=== PATIENT | male | born 1950 | race Caucasian/White ===

== ENCOUNTER 2016-08-08 09:15 | Day surgery (SDC) | payer MEDICARE ==
[~2016-08-08] VITALS: Ht 172.7 cm; Wt 84.0 kg
[~2016-08-08 09:15] MED LIST: LISI10TA PO; LOSA25TA21 PO; Lactated Ringer's 1,000 ML IV ONE; SIMV20TA4 PO
[2016-08-08] MEDS ORDERED: Propofol 10,000 mCg/mL 20 mL Inj ONE (09:16)
[2016-08-08] MEDS ORDERED: ASPI-973 PO (09:42)
[2016-08-08 09:51] VITALS: BP 133/90; PULSE 61; RESP 17; O2SAT 96
[2016-08-08] MEDS ORDERED: Lactated Ringer's 1,000 ML IV SCH (10:16)
--- NOTE | 2016-08-08 10:16 | PCM.HPANE ---
Patient Data Surgeon Admitting Provider: Attending Provider:Moses Long MD Primary Care Physician:Rodrigo Camejo MD Other Provider:[facility] Reason for Visit Dysphagia Ht/WT & BMI Height (Feet): 5 Height (Inches): 8 Weight (Kilograms): 84 Body Mass Index 28.00 Allergies Coded Allergies: No Known Allergies (Verified , 11/02/14) Past Anesthesia History Anesthesia History: Denies:: Abnormal Airway, Anesthesia Reactions, Difficult Intubation, Fam Anesthesia Reaction, Fam Malignant Hypertherm, Malignant Hyperthermia Diabetes History Hx Diabetes?: No MRSA MRSA: No Medications Blood Thinner: Aspirin Last Dose Blood Thinner: Aug 06, 2016 Reported Medications Aspirin 81 Mg [id number] Mg PO DAILY Ref 0 08/08/16 Simvastatin 20 Mg [id number] Mg PO HS Ref 0 08/07/16 Losartan Potassium 25 Mg [id number] Mg PO DAILY 08/07/16 Discontinued Reported Medications Lisinopril 10 Mg [id number] Mg PO DAILY 30 Days Ref 0 08/07/16 [statin] No Conflict [id number] 04/17/12 History History of ENT Problems?: No HEENT History: Positive for:: Dysphagia (dry foods) Hearing Problem Denies:: Abnormal Airway Difficult Intubation Hx of Heart Problems?: Yes Cardiovascular History: Positive for:: Hypertension Denies:: AICD Atrial Fibrillation Chest Pain Pacemaker Valvular Heart Disease Hx of Respiratory Problem?: No Respiratory History: Denies:: Asthma COPD Cough Hemoptysis Pneumonia Tuberculosis Hx Neurologic Problems?: Yes Neurological History: Positive for:: Dizziness (Occasional vertigo) Denies:: CVA Hx of GI Problems?: Yes Gastrointestinal History: Denies:: Cirrhosis Diverticulitis Gall Bladder Disease Gastroesphageal Reflux Hiatal Hernia Liver Disease Rectal Bleeding Hx of Problems?: No Male Hx: Denies:: Scrotal Mass Musculoskeletal History: Positive for:: Joint Replacement (LEFT KNEE) Hx of Psycho/Social Problems?: No Psycho Social History: Denies:: Anxiety Bipolar Disorder Hx Depression Suicide Attempt Hx Surgeries?: Yes (see paper chart) Hx Any Other Health Problems?: No Other History: Positive for:: Cancer (Basal cell carcinoma on multiple moles) Hospitalization Denies:: Endocrine Disease Thyroid Disease History Blood Transfusions: Denies:: Blood Transfuse Reaction Blood Transfusions Hx Diabetes: No Hx Alcohol Use: Yes (3 BEERS daily)Hx Substance Use: No Smoking Status: Former Smoker Stop/Bang Treated for Sleep Apnea?: No Do You Have a CPAP Machine?: No S-Snoring: Do You Snore Loudly: Yes T-Tired: feel tired, fatigued: No O-Obsered: Observed not breath: No P-Blood Pressure: treated: Yes B- Body Mass Index > 35 kg/m2: No A- Age over 50: Yes N- Neck Large Circumference: No G- Gender Male: Yes JOANNE Total Score: 4 JOANNE Risk Assessment: Low Risk, <3 Yes Risk Assessment Category Category 1A: Patient has history of documented sleep apnea, and HAS NOT received any narcotic, sedative or anesthesia administration during this stay. Category 1B: Patient has history of documented sleep apnea, and HAS received any narcotic , sedative or anesthesia administration during this stay Category 2: Patient has SUSPECTED Obstructive Sleep Apnea, and HAS received any narcotic , sedative or anesthesia administration during this stay. Category 3: Patient has SUSPECTED Obstructive Sleep Apnea and HAS NOT received narcotic, sedative or anesthesia administration during this stay. Category 4: Outpatient in Procedural Areas with known sleep apnea or who screen positive for High Risk via the STOP/BANG questionnaire. Exam Exam Vital Signs Vital Signs Date Time Temp Pulse Resp B/P Pulse Ox O2 Delivery O2 Flow Rate FiO2 08/08/16 09:51 36.9 61 17 133/90 96 Room Air General Appearance: Oriented X3 HEENT/AIRWAY: MP 2 Lungs: Normal Air Movement Heart: Regular Rate/Rhythm Plan Impression Patient chart reviewed, patient interviewed and anesthestic plan with risks, benefits, and alternatives discussed, and informed consent obtained. ASA Physical Status: ASA2 Mod Systemic Disease Anesthetic Plan: MAC Bene/Risks/Altern/Consents: Yes HP Complete Prior to Induction: Yes Ramakrishna Min MD Aug 08, 2016 10:15
[2016-08-08] MEDS ORDERED: Ondansetron 2 mg/mL 2 mL Inj IVPUSH PRN (10:20)
[2016-08-08] MEDS ORDERED: MetoCLOpramide 5 mg/mL 2 mL Inj IVPUSH PRN (10:20)
--- NOTE | 2016-08-08 10:40 | PCM.ENDEGD ---
EGD Date of Service: Aug 08, 2016 Physician Moses Long MD Pre Procedure Diagnosis: Dysphagia Post Procedure Dx & Findings: Esophageal erosion gastric ulcers Procedure Esophagogastroduodenoscopy PROCEDURE IN DETAIL: After proper sedation, Olympus video endoscope was inserted into patient's mouth and esophagus was successfully intubated. Scope introduced esophagus. Esophagus showed normal shiny whitish mucosa consistent with squamous cell component. Z line was at 43 cm from the incisors. Z line showed a spot where there was healing erosion. Labs obtained. Scope further advanced to the stomach. Stomach showed normal shiny mucosa with normal appearing rugae folds without any ulcer mass erosion until the antrum. In the antrum, there were 2 ulcers one centimeters clean based and couple more erosions. Biopsies obtained. Cardia fundus body antrum pylorus were all visualized. Retroflexion was done. Stomach was easily inflated and deflatable using air. Scope further events to the distal duodenum. Duodenal bulb showed redness small erosions. Labs obtained. The rest of the duodenum revealed normal villous structures with normal appearing folds without any mass ulcer erosion. Impression Esophagitis Gastric ulcers Duodenitis Recommendation Omeprazole 20 mg once a day Continue baby aspirin. [facility] Risks and Benefits Informed consent was obtained from the patient after all risks and benefits including but not limited to drug reaction, infection, pain, bleeding, perforation, as well as alternatives were discussed. Patient monitoring Continuous pulse oximetry, cardiac monitoring, blood pressure monitoring, IV access, and oxygen at 2L per nasal cannula. Complications There were no periprocedural complications identified. Post Procedure Plan Post Procedure Recommendations 1. Restrict activities today. 2. Resume normal activities in the morning. 3. Resume medications. 4. GERD behavioral modification: - Avoid fatty, acidic, spicy, large meals - Do not lie down after meals - Do not eat or drink anything for at least 2 1/2 hours before going to bed at night - Discontinue tobacco and alcohol - Decrease or avoid caffeine - Avoid chocolate and mints - Decrease weight - Avoid aspirin and non steroidal anti-inflammatory agents (NSAID) such as Aleve, Advil, Mobic, Naproxen, Ibuprofen, etc 5. Add proton pump inhibitor. Take 30 minutes before 1st meal of the day. 6. Patient informed of normal post procedure side effects as bloating, drowsiness, blood streaking in the stool 7. If gastric biopsy reveal H.pylori, continue with appropriate treatment 8. If small bowel biopsy reveals celiac, continue with appropriate treatment 9. Please don't hesitate to call me with any questions Moses Long MD Aug 08, 2016 10:40
[2016-08-08 10:42] VITALS: BP 121/78; PULSE 64; RESP 14; O2SAT 94
[2016-08-08 10:52] VITALS: BP 113/72; PULSE 57; RESP 14; O2SAT 95
[2016-08-08 11:02] VITALS: BP 139/80; PULSE 57; RESP 14; O2SAT 97
--- NOTE | 2016-08-08 13:49 | PCM.ANEP1 ---
Post Anesthesia Phase 1 PACU Phase 1 Assessment Date of Service: Aug 08, 2016 Vital Signs Vital Signs Date Time Temp Pulse Resp B/P Pulse Ox O2 Delivery O2 Flow Rate FiO2 08/08/16 11:02 57 14 139/80 97 Room Air 08/08/16 10:52 57 14 113/72 95 Room Air 08/08/16 10:42 64 14 121/78 94 Room Air 08/08/16 09:51 36.9 61 17 133/90 96 Room Air Anesthetic Administered: MAC Level of Alertness: Awake, talking Pain: No Nausea or Vomiting: No Oxygen Delivery: Room Air Lungs: Normal Air Movement Ramakrishna Min MD Aug 08, 2016 13:49
--- NOTE | 2016-08-08 13:49 | PCM.ANEP2 ---
Post Anesthesia Evaluation ASA/CMS Post Anesthesia VS in Patient's Normal Range?: Yes Resp Stable; Airway Patent?: Yes CV Function & Hydration Stable: Yes Mental Status Recovered?: Yes Pain control Satisfactory?: Yes N/V Control Satisfactory?: Yes Ramakrishna Min MD Aug 08, 2016 13:49
--- NOTE | 2016-08-09 14:19 | PATH ---
SURGICAL PATHOLOGY Attending Physician:Moses Long M.D. CASE STATUS: Signed Out PATIENT NAME: ANDRES ABDI PID: [id number] : 1950 DATE COLLECTED:08/08/2016 17:06 SPECIMEN: 1: Duodenum, Biopsy 2: Gastric, Biopsy 3: Esophagus, Biopsy CLINICAL HISTORY: 1). DUODENAL BIOPSY 2). GASTRIC ULCER BIOPSY 3). DISTAL ESOPHAGUS EROSION BIOPSY FINAL DIAGNOSIS: 1.DUODENAL BIOPSY: MILD CHRONIC ACTIVE DUODENITIS WITH NO EVIDENCE OF ULCERATION. Negative for dysplasia and malignancy. Negative for evidence of celiac disease. 2.GASTRIC ULCER BIOPSY: MILD CHRONIC GASTRITIS INVOLVING ANTRAL MUCOSA WITH NO HISTOLOGIC EVIDENCE OF ULCERATION. Negative for evidence of Helicobacter. Focally positive for intestinal metaplasia. Negative for dysplasia and malignancy. 3.DISTAL ESOPHAGUS EROSION BIOPSY: FRAGMENTS OF SQUAMOUS MUCOSA AND GASTRIC CARDIA-TYPE MUCOS WITH MILD CHRONIC ACTIVE INFLAMMATION AND FOCAL EROSION OF CARDIA SURFACE EPITHELIUM. Negative for specialized metaplasia of Selby' s-type esophagus. Negative for dysplasia and malignancy. Numerous eosinophils present within squamous epithelium numbering greater than 65 per high-powered field, suggestive of possible eosinophilic esophagitis (see comment). ICD10 code K29.70 NOTE: Although eosinophils present within the squamous epithelium in the distal esophagus may occur secondary to chronic reflux, the number of eosinophils present in this case is distinctly suggestive of possible eosinophilic esophagitis. Clinical correlation is suggested. GROSS DESCRIPTION: The specimen is received in three formalin filled containers labeled with the patient's name. 1). The specimen is sublabeled "duodenal" and consists of 2 portions of tissue which aggregate to 0.2 x 0.2 x 0.2 CM. The specimen is entirely submitted in cassette 1A. 2). The specimen is sublabeled "gastric ulcer" and consists of a 0.2 x 0.2 x 0.1 CM portion of tissue which is entirely submitted in cassette 2A. 3). The specimen is sublabeled "distal esophagus erosion" and consists of 2 portions of tissue which aggregate to 0.3 x 0.3 x 0.2 CM. The specimen is entirely submitted in cassette 3A. 08/08/2016 DAC MICRO DESCRIPTION: See diagnosis. ICD-9 CODES: CPT CODES: 1: 76000 2: 79627 3: 83043 Electronically Signed Out Apolinar Duron MD [facility] [address], [place] [address] Technical component performed at [facility], [address], [place], [address]
== END 2016-08-08 23:59 | disposition home or self-care (01) ==
LOC: END 09:15
PROVIDERS: ATTEND Internal Medicine
DX: R13.10 Dysphagia, unspecified (principal); K20.9 Esophagitis, unspecified; K29.80 Duodenitis without bleeding; K29.50 Unspecified chronic gastritis without bleeding; I10 Essential (primary) hypertension; Z96.652 Presence of left artificial knee joint; Z79.82 Long term (current) use of aspirin; Z85.828 Personal history of other malignant neoplasm of skin; Z87.891 Personal history of nicotine dependence
CPT/HCPCS: 43239; 88305; J7120